=== PATIENT | female | born 1990 | race Caucasian/White ===

== ENCOUNTER → 2018-01-14 20:00 | Outpatient (CLI) | payer OTHER, SELFPAY ==
[2018-01-14 20:43] LABS: Influenza A and B by PCR Rapid Negative (Negative)
== END ==
PROVIDERS: Visit Provider Physician Assistant
DX: R68.89 Other general symptoms and signs (principal)
CPT/HCPCS: 87400

== ENCOUNTER 2018-03-11 19:25 | Emergency (ER) | payer OTHER, SELFPAY ==
[2018-03-11 19:31] VITALS: BP 138/83; PULSE 98; RESP 14; TEMP 37; O2SAT 97; BMI 22.3
--- NOTE | 2018-03-11 19:36 | ED.FALL ---
HPI - Fall General Chief Complaint: Fall Stated Complaint: Fall, neck and back pain Time Seen by Provider: 03/11/18 19:54 Source: patient Mode of arrival: ambulatory Limitations: no limitations History of Present Illness HPI Narrative: 28-year-old nonsmoker, otherwise healthy female presents with a chief complaint of worsening head and neck pain since a fall few days ago. The patient was at a local [place] wet [place] when she slipped and fell onto her left shoulder and struck her head. She denies any loss of consciousness nor nausea or vomiting. She takes no blood thinners and denies alcohol or street drugs. She denies numbness, tingling or weakness but states she has a continued left side headache. She denies any specific provocation, palliation or radiation. Additionally she has significant midline neck tenderness that is worse with any range of motion. Her left shoulder has been hurting her but she has full range of motion. She states her left shoulder hurts worse with range of motion and improves with rest. Finally her left hip has developed some tenderness as well, again worse with range of motion and improves rest MD complaint: fall Onset (ago): day(s) Fall from: standing Fall witnessed: yes, by family Place fall occurred: other Loss of consciousness: none Prolonged down time: no Symptoms prior to fall: none Context: tripped/slipped Location of injury: head and pelvis Location of injury - extremities: Left: shoulder Severity: mild Associated symptoms (after fall): headache and neck pain Related Data Home Medications Medication Instructions Recorded Confirmed No Known Home Medications 03/11/18 03/11/18 Allergies Allergy/AdvReac Type Severity Reaction Status Date / Time No Known Drug Allergies Allergy Verified 03/11/18 19:35 Review of Systems Review of Systems All systems reviewed & are unremarkable except as noted in HPI and below Constitutional Denies chills, Denies fever(s), Reports headache(s), Denies lethargy and Denies weakness Eyes Denies change in vision, Denies eye discharge, Denies irritation and Denies loss of vision ENT Ears, Nose, Mouth, and Throat: Denies change in voice, Reports headache(s), Denies neck pain and Denies sore throat Cardiovascular Denies chest pain, Denies irregular heart rhythm, Denies lightheadedness, Denies palpitations, Denies dyspnea, Denies dyspnea on exertion and Denies orthopnea Respiratory Denies cough, Denies dyspnea, Denies dyspnea on exertion and Denies wheezing Gastrointestinal Gastrointestinal: Denies abdominal pain, Denies change in bowel habits, Denies diarrhea, Denies nausea and Denies vomiting Genitourinary Denies hematuria, Denies flank pain, Denies urinary incontinence and Denies urinary urgency Musculoskeletal Reports limited range of motion and Denies neck pain Integumentary/Breasts Denies pruritus, Denies erythema, Denies rash and Denies wounds Neurologic Denies confusion, Reports headache(s), Denies loss of vision and Denies weakness Psychiatric Denies anxiety, Denies confusion, Denies depression, Denies homicidal ideation and Denies suicidal ideation Endocrine Denies palpitations Hematologic/Lymphatic Denies easy bruising Allergic/Immunologic Denies wheezing Exam Narrative Exam Narrative: GENERAL: This is a well-nourished, well-developed patient, in mild distress. GCS 15 HEAD: Mild tenderness with minimal swelling on left parietal region without laceration, abrasion or hematoma. EYES: Pupils equal round and reactive. Extraocular motions intact. No scleral icterus. No injection or drainage. ENT: Nose without bleeding, purulent drainage or septal hematoma. Throat without erythema, tonsillar hypertrophy or exudate. Uvula midline. Airway patent. NECK: Trachea midline. No JVD or lymphadenopathy. Midline tenderness C2-C3 without palpable step-off, no meningeal signs. CARDIOVASCULAR: Regular rate and rhythm without murmurs, gallops, or rubs. RESPIRATORY: Clear to auscultation. Breath sounds equal bilaterally. No wheezes, rales, or rhonchi. GASTROINTESTINAL: Abdomen soft, non-tender, nondistended. No hepato-splenomegaly, or palpable masses. No guarding. EXTREMITIES: No clubbing, cyanosis, or edema. Full but painful range of motion of left shoulder. Full but painful range of motion of left hip BACK: Nontender without deformity or crepitance. No flank tenderness. NEURO: AOx3. SKIN: No rash or erythema. Initial Vital Signs Initial Vital Signs: Vital Signs Temperature 98.6 F 03/11/18 19:31 Pulse Rate 98 H 03/11/18 19:31 Respiratory Rate 14 03/11/18 19:31 Blood Pressure 138/83 03/11/18 19:31 Pulse Oximetry 97 03/11/18 19:31 [facility] Medical History 6, not currently (Acute) Miscarriage (Acute) Social History Smoking Status: Never smoker Course Orders Ordered: ED Orders 03/11/18 20:02 XR hip w pel if done LT 2V Stat 03/11/18 20:03 CT cervical spine wo con Stat CT head/brain wo con Stat Vital Signs - 8 hr 03/11/18 19:31 03/11/18 21:35 Temperature 98.6 F Pulse Rate 98 H 61 Respiratory Rate 14 15 Blood Pressure 138/83 121/67 Pulse Oximetry 97 MDM - Fall Differential Diagnosis Likely syncope, dislocation of shoulder region, compression fracture and concussion without loss of consciousness Imaging Data CT scan - head: Radiologist's impression: [address] [address] [address] Scan Report Signed Patient: Vickie Marquez CMR#: [id number] : 1990Acct:[id number] Age/Sex: 28 / FDate of Service: 03/11/18 Loc: ED Accession Number: [id number] Procedure: CT head/brain wo con Ordering Provider: Jorge Gordon D.O. PROCEDURE: CT HEAD/BRAIN WO CON INDICATIONS: fall with head injury, confusion TECHNIQUE: Noncontrast 4.5 mm thick angled axial sections acquired from the foramen magnum to the vertex, with coronal and sagittal reformats. For radiation dose reduction, the following was used: automated exposure control, adjustment of mA and/or kV according to patient size. COMPARISON: None. FINDINGS: Image quality: Excellent. CSF spaces: Basal cisterns are patent. No extra-axial fluid collections. Ventricles are normal in size and shape. Brain: No midline shift. No intracranial masses or hemorrhage. Marc-white matter interface is normal. Skull and face: Calvarium and visualized facial bones are intact, without suspicious lesions. Sinuses: Visualized sinuses and mastoids are clear. IMPRESSION: Normal for age, no trauma found. Dictated by: Kar Das M.D. on 03/11/2018 at 20:45 CT Cspine: Radiologist's impression: [address] [address] [address] Scan Report Signed Patient: Vickie Marquez CMR#: [id number] : 1990Acct:[id number] Age/Sex: 28 / FDate of Service: 03/11/18 Loc: ED Accession Number: [id number] Procedure: CT cervical spine wo con Ordering Provider: Jorge Gordon D.O. PROCEDURE: CT CERVICAL SPINE WO CON INDICATIONS: fall with severe midline neck pain C2/C3/C4 on palp TECHNIQUE: Noncontrast 3 mm thick sections acquired from the skull base to the T4 level. Sagittal and coronal reformats were then constructed. For radiation dose reduction, the following was used: automated exposure control, adjustment of mA and/or kV according to patient size. COMPARISON: None. FINDINGS: Image quality: Excellent. Bones: No fractures or dislocations. Visualized superior ribs are intact. Soft tissues: Prevertebral soft tissues are normal in thickness. No paravertebral hematomas. No apical pneumothoraces. IMPRESSION: No trauma found. Dictated by: Kar Das M.D. on 03/11/2018 at 20:45 Approved by: Kar Das M.D. on 03/11/2018 at 20:47 Pelvis / Hip Xray: Radiologist's impression: [place] [address] XRay Report Signed Patient: Vickie Marquez CMR#: [id number] : 1990Acct:[id number] Age/Sex: 28 / FDate of Service: 03/11/18 Loc: ED Accession Number: [id number] Procedure: XR hip w pel if done LT 2V Ordering Provider: Jorge Gordon D.O. PROCEDURE: XR HIP W PEL IF DONE LT 2V INDICATIONS: fall with L hip pain TECHNIQUE: AP pelvis with lateral view(s) of the left hip(s). COMPARISON: None. FINDINGS: Bones: No fractures or dislocations. Pelvic ring appears intact. No suspicious bony lesions. Soft tissues: The visualized bowel gas pattern is normal. No suspicious soft tissue calcifications. IMPRESSION: No acute trauma found. If unusual symptoms persist followup by noncontrast pelvic MR scanning for trauma may be warranted to detect previously hidden fractures. Dictated by: Kar Das M.D. on 03/11/2018 at 20:40 Approved by: Kar Das M.D. on 03/11/2018 at 20:41 Discharge Plan Departure Patient Disposition: Home Clinical Impression: Contusion of neck, Concussion, Contusion of hip Discharge Date/Time: 03/11/18 21:36 Interventions: ED Discharge Assessment Last Done: 03/11/18 21:35 Instructions: DI for Concussion Activity Restrictions/Additional Instructions: *You have been diagnosed with [ concussion, neck contusion, left hip contusion ] *What to do: *Take medications as directed: Tylenol and Motrin for pain *Follow up with your primary care provider in 2-3 days, call for an appointment. Let them know you were seen in the Emergency Department and that we ask that you be seen in follow up *Return to ER if you should have any new, worsening or concerning symptoms Prescriptions: No Action No Known Home Medications RF: 0
--- NOTE | 2018-03-11 20:02 | DI.RAD.S_ITS ---
PROCEDURE: XR HIP W PEL IF DONE LT 2V INDICATIONS: fall with L hip pain TECHNIQUE: AP pelvis with lateral view(s) of the left hip(s). COMPARISON: None. FINDINGS: Bones: No fractures or dislocations. Pelvic ring appears intact. No suspicious bony lesions. Soft tissues: The visualized bowel gas pattern is normal. No suspicious soft tissue calcifications. IMPRESSION: No acute trauma found. If unusual symptoms persist followup by noncontrast pelvic MR scanning for trauma may be warranted to detect previously hidden fractures. Dictated by: Kar Das M.D. on 03/11/2018 at 20:40 Approved by: Kar Das M.D. on 03/11/2018 at 20:41
--- NOTE | 2018-03-11 20:03 | DI.CT.S_ITS ---
PROCEDURE: CT CERVICAL SPINE WO CON INDICATIONS: fall with severe midline neck pain C2/C3/C4 on palp TECHNIQUE: Noncontrast 3 mm thick sections acquired from the skull base to the T4 level. Sagittal and coronal reformats were then constructed. For radiation dose reduction, the following was used: automated exposure control, adjustment of mA and/or kV according to patient size. COMPARISON: None. FINDINGS: Image quality: Excellent. Bones: No fractures or dislocations. Visualized superior ribs are intact. Soft tissues: Prevertebral soft tissues are normal in thickness. No paravertebral hematomas. No apical pneumothoraces. IMPRESSION: No trauma found. Dictated by: Kar Das M.D. on 03/11/2018 at 20:45 Approved by: Kar Das M.D. on 03/11/2018 at 20:47
--- NOTE | 2018-03-11 20:03 | DI.CT.S_ITS ---
PROCEDURE: CT HEAD/BRAIN WO CON INDICATIONS: fall with head injury, confusion TECHNIQUE: Noncontrast 4.5 mm thick angled axial sections acquired from the foramen magnum to the vertex, with coronal and sagittal reformats. For radiation dose reduction, the following was used: automated exposure control, adjustment of mA and/or kV according to patient size. COMPARISON: None. FINDINGS: Image quality: Excellent. CSF spaces: Basal cisterns are patent. No extra-axial fluid collections. Ventricles are normal in size and shape. Brain: No midline shift. No intracranial masses or hemorrhage. Marc-white matter interface is normal. Skull and face: Calvarium and visualized facial bones are intact, without suspicious lesions. Sinuses: Visualized sinuses and mastoids are clear. IMPRESSION: Normal for age, no trauma found. Dictated by: Kar Das M.D. on 03/11/2018 at 20:45 Approved by: Kar Das M.D. on 03/11/2018 at 20:45
[2018-03-11 21:35] VITALS: BP 121/67; PULSE 61; RESP 15
--- NOTE | 2018-03-12 00:52 | ED_ITS ---
HPI - Fall General Chief Complaint: Fall Stated Complaint: Fall, neck and back pain Time Seen by Provider: 03/11/18 19:54 Source: patient Mode of arrival: ambulatory Limitations: no limitations History of Present Illness HPI Narrative: 28-year-old nonsmoker, otherwise healthy female presents with a chief complaint of worsening head and neck pain since a fall few days ago. The patient was at a local [place] when she slipped and fell onto her left shoulder and struck her head. She denies any loss of consciousness nor nausea or vomiting. She takes no blood thinners and denies alcohol or street drugs. She denies numbness, tingling or weakness but states she has a continued left side headache. She denies any specific provocation, palliation or radiation. Additionally she has significant midline neck tenderness that is worse with any range of motion. Her left shoulder has been hurting her but she has full range of motion. She states her left shoulder hurts worse with range of motion and improves with rest. Finally her left hip has developed some tenderness as well, again worse with range of motion and improves rest MD complaint: fall Onset (ago): day(s) Fall from: standing Fall witnessed: yes, by family Place fall occurred: other Loss of consciousness: none Prolonged down time: no Symptoms prior to fall: none Context: tripped/slipped Location of injury: head and pelvis Location of injury - extremities: Left: shoulder Severity: mild Associated symptoms (after fall): headache and neck pain Related Data Home Medications Medication Instructions Recorded Confirmed No Known Home Medications 03/11/18 03/11/18 Allergies Allergy/AdvReac Type Severity Reaction Status Date / Time No Known Drug Allergies Allergy Verified 03/11/18 19:35 Review of Systems Review of Systems All systems reviewed & are unremarkable except as noted in HPI and below Constitutional Denies chills, Denies fever(s), Reports headache(s), Denies lethargy and Denies weakness Eyes Denies change in vision, Denies eye discharge, Denies irritation and Denies loss of vision ENT Ears, Nose, Mouth, and Throat: Denies change in voice, Reports headache(s), Denies neck pain and Denies sore throat Cardiovascular Denies chest pain, Denies irregular heart rhythm, Denies lightheadedness, Denies palpitations, Denies dyspnea, Denies dyspnea on exertion and Denies orthopnea Respiratory Denies cough, Denies dyspnea, Denies dyspnea on exertion and Denies wheezing Gastrointestinal Gastrointestinal: Denies abdominal pain, Denies change in bowel habits, Denies diarrhea, Denies nausea and Denies vomiting Genitourinary Denies hematuria, Denies flank pain, Denies urinary incontinence and Denies urinary urgency Musculoskeletal Reports limited range of motion and Denies neck pain Integumentary/Breasts Denies pruritus, Denies erythema, Denies rash and Denies wounds Neurologic Denies confusion, Reports headache(s), Denies loss of vision and Denies weakness Psychiatric Denies anxiety, Denies confusion, Denies depression, Denies homicidal ideation and Denies suicidal ideation Endocrine Denies palpitations Hematologic/Lymphatic Denies easy bruising Allergic/Immunologic Denies wheezing Exam Narrative Exam Narrative: GENERAL: This is a well-nourished, well-developed patient, in mild distress. GCS 15 HEAD: Mild tenderness with minimal swelling on left parietal region without laceration, abrasion or hematoma. EYES: Pupils equal round and reactive. Extraocular motions intact. No scleral icterus. No injection or drainage. ENT: Nose without bleeding, purulent drainage or septal hematoma. Throat without erythema, tonsillar hypertrophy or exudate. Uvula midline. Airway patent. NECK: Trachea midline. No JVD or lymphadenopathy. Midline tenderness C2-C3 without palpable step-off, no meningeal signs. CARDIOVASCULAR: Regular rate and rhythm without murmurs, gallops, or rubs. RESPIRATORY: Clear to auscultation. Breath sounds equal bilaterally. No wheezes , rales, or rhonchi. GASTROINTESTINAL: Abdomen soft, non-tender, nondistended. No hepato-splenomegaly , or palpable masses. No guarding. EXTREMITIES: No clubbing, cyanosis, or edema. Full but painful range of motion of left shoulder. Full but painful range of motion of left hip BACK: Nontender without deformity or crepitance. No flank tenderness. NEURO: AOx3. SKIN: No rash or erythema. Initial Vital Signs Initial Vital Signs: Vital Signs Temperature 98.6 F 03/11/18 19:31 Pulse Rate 98 H 03/11/18 19:31 Respiratory Rate 14 03/11/18 19:31 Blood Pressure 138/83 03/11/18 19:31 Pulse Oximetry 97 03/11/18 19:31 [facility] Medical History 6, not currently (Acute) Miscarriage (Acute) Social History Smoking Status: Never smoker Course Orders Ordered: ED Orders 03/11/18 20:02 XR hip w pel if done LT 2V Stat 03/11/18 20:03 CT cervical spine wo con Stat CT head/brain wo con Stat Vital Signs - 8 hr 03/11/18 19:31 03/11/18 21:35 Temperature 98.6 F Pulse Rate 98 H 61 Respiratory Rate 14 15 Blood Pressure 138/83 121/67 Pulse Oximetry 97 MDM - Fall Differential Diagnosis Likely syncope, dislocation of shoulder region, compression fracture and concussion without loss of consciousness Imaging Data CT scan - head: Radiologist's impression: [address] [address] [address] Scan Report Signed Patient: Vickie Marquez CMR#: [id number] : 1990Acct:[id number] Age/Sex: 28 / FDate of Service: 03/11/18 Loc: ED Accession Number: [id number] Procedure: CT head/brain wo con Ordering Provider: Jorge Gordon D.O. PROCEDURE: CT HEAD/BRAIN WO CON INDICATIONS: fall with head injury, confusion TECHNIQUE: Noncontrast 4.5 mm thick angled axial sections acquired from the foramen magnum to the vertex, with coronal and sagittal reformats. For radiation dose reduction, the following was used: automated exposure control, adjustment of mA and/or kV according to patient size. COMPARISON: None. FINDINGS: Image quality: Excellent. CSF spaces: Basal cisterns are patent. No extra-axial fluid collections. Ventricles are normal in size and shape. Brain: No midline shift. No intracranial masses or hemorrhage. Marc-white matter interface is normal. Skull and face: Calvarium and visualized facial bones are intact, without suspicious lesions. Sinuses: Visualized sinuses and mastoids are clear. IMPRESSION: Normal for age, no trauma found. Dictated by: Kar Das M.D. on 03/11/2018 at 20:45 CT Cspine: Radiologist's impression: [address] [address] [address] Scan Report Signed Patient: Vickie Marquez CMR#: [id number] : 1990Acct:[id number] Age/Sex: 28 / FDate of Service: 03/11/18 Loc: ED Accession Number: [id number] Procedure: CT cervical spine wo con Ordering Provider: Jorge Gordon D.O. PROCEDURE: CT CERVICAL SPINE WO CON INDICATIONS: fall with severe midline neck pain C2/C3/C4 on palp TECHNIQUE: Noncontrast 3 mm thick sections acquired from the skull base to the T4 level. Sagittal and coronal reformats were then constructed. For radiation dose reduction, the following was used: automated exposure control, adjustment of mA and/or kV according to patient size. COMPARISON: None. FINDINGS: Image quality: Excellent. Bones: No fractures or dislocations. Visualized superior ribs are intact. Soft tissues: Prevertebral soft tissues are normal in thickness. No paravertebral hematomas. No apical pneumothoraces. IMPRESSION: No trauma found. Dictated by: Kar Das M.D. on 03/11/2018 at 20:45 Approved by: Kar Das M.D. on 03/11/2018 at 20:47 Pelvis / Hip Xray: Radiologist's impression: [place] [address] XRay Report Signed Patient: Vickie Marquez CMR#: [id number] : 1990Acct:[id number] Age/Sex: 28 / FDate of Service: 03/11/18 Loc: ED Accession Number: [id number] Procedure: XR hip w pel if done LT 2V Ordering Provider: Jorge Gordon D.O. PROCEDURE: XR HIP W PEL IF DONE LT 2V INDICATIONS: fall with L hip pain TECHNIQUE: AP pelvis with lateral view(s) of the left hip(s). COMPARISON: None. FINDINGS: Bones: No fractures or dislocations. Pelvic ring appears intact. No suspicious bony lesions. Soft tissues: The visualized bowel gas pattern is normal. No suspicious soft tissue calcifications. IMPRESSION: No acute trauma found. If unusual symptoms persist followup by noncontrast pelvic MR scanning for trauma may be warranted to detect previously hidden fractures. Dictated by: Kar Das M.D. on 03/11/2018 at 20:40 Approved by: Kar Das M.D. on 03/11/2018 at 20:41 Discharge Plan Departure Patient Disposition: Home Clinical Impression: Contusion of neck, Concussion, Contusion of hip Discharge Date/Time: 03/11/18 21:36 Interventions: ED Discharge Assessment Last Done: 03/11/18 21:35 Instructions: DI for Concussion Activity Restrictions/Additional Instructions: *You have been diagnosed with [ concussion, neck contusion, left hip contusion ] *What to do: *Take medications as directed: Tylenol and Motrin for pain *Follow up with your primary care provider in 2-3 days, call for an appointment. Let them know you were seen in the Emergency Department and that we ask that you be seen in follow up *Return to ER if you should have any new, worsening or concerning symptoms Prescriptions: No Action No Known Home Medications RF: 0
--- NOTE | 2018-03-14 17:37 | PC.NURSE ---
follow up call, n/a
== END 2018-03-11 21:36 | disposition home or self-care (01) ==
PROVIDERS: Emergency Provider Emergency Medicine
DX: S06.0X9A Concussion with loss of consciousness of unspecified duration, initial encounter (principal); S10.93XA Contusion of unspecified part of neck, initial encounter; S70.02XA Contusion of left hip, initial encounter; W01.198A Fall on same level from slipping, tripping and stumbling with subsequent striking against other object, initial encounter
CPT/HCPCS: 70450; 72125; 73502; 99282; 99284